=== PATIENT | female | born 1965 | race Two or more races ===

== ENCOUNTER 2018-10-11 13:22 | Outpatient (CLI) | payer OTHER | END 2018-10-11 13:38 | disposition home or self-care (01) | LOC: MAMO-SONO 13:22 | DX: Z12.31 Encounter for screening mammogram for malignant neoplasm of breast (principal); N60.11 Diffuse cystic mastopathy of right breast; N60.12 Diffuse cystic mastopathy of left breast ==

== ENCOUNTER 2018-11-05 11:48 | Outpatient (CLI) | payer OTHER | END 2018-11-05 12:06 | disposition home or self-care (01) | LOC: MAMO-SONO 11:48 | DX: Z12.31 Encounter for screening mammogram for malignant neoplasm of breast (principal); Z87.898 Personal history of other specified conditions; R92.8 Other abnormal and inconclusive findings on diagnostic imaging of breast ==